=== PATIENT | male | born 2000 | race American Indian/Alaskan Native ===

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

== ENCOUNTER 2022-07-24 10:26 | Emergency (ER) | payer OTHER, BC ==
[~2022-07-24] VITALS: Ht 195.6 cm; Wt 87.3 kg
[~2022-07-24 10:26] MED LIST: ONDA4TAB6 PO
[2022-07-24 10:29] VITALS: BP 124/67
[2022-07-24] MEDS ORDERED: acetaminophen 325mg tablet PO ONE (11:20)
== END 2022-07-24 11:36 | disposition home or self-care (01) ==
LOC: ER 10:28
DX: M25.561 Pain in right knee (principal); Z87.81 Personal history of (healed) traumatic fracture; Z79.899 Other long term (current) drug therapy
CPT/HCPCS: 73564; 99283